=== PATIENT | female | born 1965 | race African-American/Black ===

== ENCOUNTER 2017-09-27 23:52 | Inpatient (IN) | payer OTHER ==
[~2017-09-27] VITALS: Ht 170.2 cm; Wt 125.5 kg
[~2017-09-27 23:52] MED LIST: AMLO-512 PO; LISI10TA PO; VERA40TA5 PO; [UNRECOGNIZED DRUG - REMARK] PO
[2017-09-27] MEDS ORDERED: IPRATROPIUM BROMIDE 0.5 MG/2.5 ML NEB SOLUTION NEB ONE (23:54)
[2017-09-27] MEDS ORDERED: 0.9% SODIUM CHLORIDE 5 ML NEB SOLUTION NEB ONE (23:55)
[2017-09-27] MEDS ORDERED: ALBUTEROL SULFATE 5 MG/ML 20 ML NEB SOLN [BULK] NEB ONE (23:56)
[2017-09-28] MEDS ORDERED: ALBUTEROL SULFATE 5 MG/ML 20 ML NEB SOLN [BULK] NEB ONE
[2017-09-28] MEDS ORDERED: MethylPREDNISolone SOD SUCC 125 MG/2 ML VIAL IVP ONE
[2017-09-28] MEDS ORDERED: CefTRIAXone SODIUM 1 GM in DEXTROSE 5%-WATER 10 ML IV ONE ×2
[2017-09-28] MEDS ORDERED: OXYGEN THERAPY IH SCH
[2017-09-28] MEDS ORDERED: IPRATROPIUM BROMIDE 0.5 MG/2.5 ML NEB SOLUTION NEB ONE
[2017-09-28 00:15] LABS: BASOPHILS % (AUTO) 0.7 % (0.0-2.0); EOSINOPHILS % (AUTO) 1.8 % (1.0-6.0); HEMATOCRIT 32.5 % (36-46); HEMOGLOBIN 10.7 g/dL (12.0-16.0); LYMPHOCYTES % (AUTO) 32.8 % (22.0-44.0); MEAN CORPUSCULAR HEMOGLOBIN 23.6 pg (26.0-34.0); MEAN CORPUSCULAR HGB CONC 32.9 G/dL (31.0-37.0); MEAN CORPUSCULAR VOLUME 72 fL (80-100); MONOCYTES # (AUTO) 0.3 K/uL (0.1-1.0); MONOCYTES % (AUTO) 3.6 % (2.0-9.0); NEUTROPHILS # (AUTO) 5.6 K/uL (1.8-7.7); NEUTROPHILS % (AUTO) 61.1 % (40.0-70.0); PLATELET COUNT (AUTO) 423 K/uL (150-450); RED BLOOD CELL COUNT(AUTO) 4.52 MIL/uL (4.00-5.20); RED CELL DISTRIBUTION WIDTH 17.1 % (11.5-14.5)
[2017-09-28 00:17] LABS: ANION GAP 10 mmol/L (8-16); CALCIUM, TOTAL 9.3 mg/dL (8.8-10.5); CARBON DIOXIDE 26 mmol/L (22-29); CHLORIDE 105 mmol/L (98-107); CREATININE 0.97 mg/dL (0.60-1.30); GLOMERULAR FILTR. RATE CALC > 60 mL/min (>60); GLUCOSE,RANDOM 142 mg/dL (70-110); POTASSIUM 3.6 mmol/L (3.5-5.1); SODIUM SERUM 141 mmol/L (136-145); UREA NITROGEN, BLOOD 10 mg/dL (7-18)
[2017-09-28 00:23] LABS: ALANINE AMINOTRANSFERASE 17 U/L (12-78); ALBUMIN 3.1 g/dL (3.4-5.0); ALKALINE PHOSPHATASE 122 U/L (46-116); ASPARTATE AMINOTRANSFERASE 15 U/L (15-37); BILIRUBIN,TOTAL 0.4 mg/dL (0.1-1.0); LIPASE 289 U/L (73-393); TOTAL PROTEIN, SERUM 7.5 g/dL (6.4-8.2)
[2017-09-28 00:32] LABS: B-TYPE NATRIURETIC PEPTIDE 307 pg/mL (0-100)
[2017-09-28] MEDS ORDERED: 0.9% SODIUM CHLORIDE 10 ML SYRINGE IVP PRN (00:45)
[2017-09-28] MEDS ORDERED: FUROSEMIDE 40 MG/4 ML VIAL IVP ONE (00:45)
[2017-09-28] MEDS ORDERED: MIDAZOLAM HCL 5 MG/ML VIAL ONE (00:45)
[2017-09-28] MEDS ORDERED: PROPOFOL 1000 MG/ISO-OSM 100 ML IV ONE ×2 (00:45→06:50)
[2017-09-28] MEDS ORDERED: ONDANSETRON HCL 4 MG/2 ML VIAL IVP PRN (00:45)
[2017-09-28] MEDS ORDERED: MIDAZOLAM HCL 5 MG/ML VIAL IVP ONE (01:00)
[2017-09-28] MEDS ORDERED: ETOMIDATE 2 MG/ML 10 ML VIAL IVP ONE (01:00)
[2017-09-28] MEDS ORDERED: VECURONIUM BROMIDE 10 MG/VIAL IVP ONE ×2 (01:00→02:00)
[2017-09-28] MEDS: PROPOFOL 1000 MG/ISO-OSM 100 ML IV PRN ×9 (01:20→23:09)
[2017-09-28 01:37] LABS: APPEARANCE,URINE CLEAR (CLEAR); BILIRUBIN,URINE NEGATIVE (NEGATIVE); GLUCOSE, URINE (UA) NEGATIVE (NEGATIVE); KETONES,URINE NEGATIVE (NEGATIVE); LEUKOCYTE ESTERASE ,URINE NEGATIVE (NEGATIVE); NITRATE,URINE NEGATIVE (NEGATIVE); OCCULT BLOOD,URINE NEGATIVE (NEGATIVE); PH,URINE 5.5 (5.0-8.0); PROTEIN,URINE POS 1+ (NEGATIVE); UROBILINOGEN,URINE 0.2 mg/dL (<=1.0)
[2017-09-28 01:52] LABS: BACTERIA,URINE Few /HPF (None Seen); RBC,URINE 0-2 /HPF (0-2); SQUAMOUS EPITHELIAL CELL,UR Few /LPF (None Seen); WBC,URINE 0-2 /HPF (0-5)
[2017-09-28 01:57] LABS: ABG A-A DIFF O2 556.5 mmHg (10-20.0); ABG BASE EXCESS 0.6 mmol/L (-2.0-3.0); ABG HCO3 23.4 mmol/L (22.0-26.0); ABG METHEMOGLOBIN 0.4 % (0.0-1.5); ABG OXYGEN CONTENT 16.3 mL/dL (15.0-23.0); ABG OXYGEN SATURATION 93.3 % (95.0-98.0); ABG OXYHEMOGLOBIN 91.1 % (94.0-100.0); ABG TOTAL HEMOGLOBIN 12.7 G/dL (12.0-18.0); SOURCE, BLOOD GAS ARTERIAL; TEMPERATURE, FAHRENHEIT, BG 98.2 FAHREN (96.0-98.6)
[2017-09-28 01:58] LABS: ABG PCO2 75 mmHg (35-45); ABG PH 7.199 (7.35-7.450); O2 DEVICE,BLOOD GAS VENTILATOR (ROOM AIR); PEEP,BG 5 cm H2O; SITE, BLOOD GAS RT RADIAL; VT, ABG 500 ml
[2017-09-28 02:20] VITALS: BP 105/75
[2017-09-28] MEDS ORDERED: IPRATROPIUM BROMIDE 0.5 MG/2.5 ML NEB SOLUTION NEB SCH (03:00)
[2017-09-28] MEDS ORDERED: ALBUTEROL SULFATE 2.5 MG/0.5 ML NEB SOLUTION NEB SCH (03:00)
[2017-09-28 03:44] LABS: ABG BASE EXCESS -0.1 mmol/L (-2.0-3.0); ABG CARBOXYHEMOGLOBIN 1.2 % (0.0-1.5); ABG HCO3 23.6 mmol/L (22.0-26.0); ABG METHEMOGLOBIN 0.2 % (0.0-1.5); ABG OXYGEN CONTENT 15.9 mL/dL (15.0-23.0); ABG OXYGEN SATURATION 95.7 % (95.0-98.0); ABG OXYHEMOGLOBIN 94.4 % (94.0-100.0); ABG PCO2 59 mmHg (35-45); ABG PH 7.275 (7.35-7.450); ABG TOTAL HEMOGLOBIN 11.9 G/dL (12.0-18.0); PO2, ARTERIAL BG 87.1 mmHg (84.0-92.0); SOURCE, BLOOD GAS ARTERIAL; TEMPERATURE, FAHRENHEIT, BG 97.9 FAHREN (96.0-98.6)
[2017-09-28 03:45] LABS: SITE, BLOOD GAS RT RADIAL
[2017-09-28 03:46] LABS: O2 DEVICE,BLOOD GAS VENTILATOR (ROOM AIR); PEEP,BG 5 cm H2O; VT, ABG 500 ml
[2017-09-28 04:00] VITALS: BP 101/57
[2017-09-28 08:00] VITALS: BP 152/93
[2017-09-28] MEDS: PANTOPRAZOLE SODIUM 40 MG DR TABLET PO SCH ×2 (09:00→09:31)
[2017-09-28] MEDS ORDERED: MAGNESIUM HYDROXIDE SUSPENSION 30 ML UDCUP PO PRN (09:00)
[2017-09-28] MEDS: DOCUSATE SODIUM 100 MG CAPSULE PO SCH ×2 (09:31→21:49)
[2017-09-28 12:00] VITALS: BP 168/97
[2017-09-28] MEDS ORDERED: ROCURONIUM BROMIDE 10 MG/ML 5 ML VIAL IVP ONE (12:00)
[2017-09-28] MEDS ORDERED: SUCCINYLCHOLINE CHLORIDE 20 MG/ML 10 ML VIAL IVP ONE (12:00)
[2017-09-28] MEDS: MethylPREDNISolone SOD SUCC 125 MG/2 ML VIAL IVP SCH ×2 (14:29→18:29)
[2017-09-28 16:00] VITALS: BP 177/94
[2017-09-28] MEDS: CloNIDine HCL 0.1 MG TABLET PO PRN ×2 (16:48→23:10)
[2017-09-28] MEDS: HEPARIN SODIUM,PORCINE 5,000 UNITS/ML VIAL SQ SCH (16:49)
[2017-09-28 20:00] VITALS: BP 173/97
[2017-09-28] MEDS: ACETAMINOPHEN 325 MG TABLET PO PRN (21:50)
[2017-09-29] VITALS: BP 163/104
[2017-09-29] MEDS: PROPOFOL 1000 MG/ISO-OSM 100 ML IV PRN ×9 (01:03→23:44)
[2017-09-29] MEDS: HEPARIN SODIUM,PORCINE 5,000 UNITS/ML VIAL SQ SCH ×4 (01:09→23:44)
[2017-09-29] MEDS: MethylPREDNISolone SOD SUCC 125 MG/2 ML VIAL IVP SCH ×5 (01:28→23:44)
[2017-09-29 04:00] VITALS: BP 162/107
[2017-09-29 04:35] LABS: AMPHET/METH SCREEN,URINE POSITIVE (NEGATIVE); BARBITURATE SCREEN, URINE NEGATIVE (NEGATIVE); BENZODIAZEPINES SCREEN,URINE POSITIVE (NEGATIVE); CANNABINOID SCREEN,URINE NEGATIVE (NEGATIVE); COCAINE SCREEN,URINE NEGATIVE (NEGATIVE); METHADONE SCREEN, URINE NEGATIVE (NEGATIVE); OPIATE SCREEN,URINE NEGATIVE (NEGATIVE)
[2017-09-29 04:37] LABS: PHENCYCLIDINE SCREEN,URINE NEGATIVE (NEGATIVE)
[2017-09-29 05:31] LABS: ANION GAP 6 mmol/L (8-16); CARBON DIOXIDE 31 mmol/L (22-29); CHLORIDE 102 mmol/L (98-107); CREATININE 0.97 mg/dL (0.60-1.30); GLOMERULAR FILTR. RATE CALC > 60 mL/min (>60); GLUCOSE,RANDOM 153 mg/dL (70-110); POTASSIUM 3.7 mmol/L (3.5-5.1); SODIUM SERUM 139 mmol/L (136-145); UREA NITROGEN, BLOOD 16 mg/dL (7-18)
[2017-09-29 06:38] LABS: BASOPHILS % (AUTO) 0.3 % (0.0-2.0); EOSINOPHILS % (AUTO) 0.3 % (1.0-6.0); HEMATOCRIT 32.3 % (36-46); HEMOGLOBIN 10.6 g/dL (12.0-16.0); LYMPHOCYTES % (AUTO) 6.1 % (22.0-44.0); MEAN CORPUSCULAR HEMOGLOBIN 23.4 pg (26.0-34.0); MEAN CORPUSCULAR HGB CONC 32.8 G/dL (31.0-37.0); MEAN CORPUSCULAR VOLUME 71 fL (80-100); MONOCYTES # (AUTO) 0.3 K/uL (0.1-1.0); MONOCYTES % (AUTO) 1.7 % (2.0-9.0); NEUTROPHILS # (AUTO) 15.2 K/uL (1.8-7.7); PLATELET COUNT (AUTO) 439 K/uL (150-450); RED BLOOD CELL COUNT(AUTO) 4.52 MIL/uL (4.00-5.20); RED CELL DISTRIBUTION WIDTH 17.5 % (11.5-14.5)
[2017-09-29 06:40] LABS: NEUTROPHILS % (AUTO) 91.6 % (40.0-70.0)
[2017-09-29 08:00] VITALS: BP 182/113
[2017-09-29 08:33] LABS: ABG A-A DIFF O2 207.6 mmHg (10-20.0); ABG BASE EXCESS 8.1 mmol/L (-2.0-3.0); ABG CARBOXYHEMOGLOBIN 0.6 % (0.0-1.5); ABG HCO3 31.1 mmol/L (22.0-26.0); ABG METHEMOGLOBIN 0.2 % (0.0-1.5); ABG OXYGEN CONTENT 14.6 mL/dL (15.0-23.0); ABG OXYGEN SATURATION 93.2 % (95.0-98.0); ABG OXYHEMOGLOBIN 92.5 % (94.0-100.0); ABG PCO2 42 mmHg (35-45); ABG PH 7.488 (7.35-7.450); ABG TOTAL HEMOGLOBIN 11.2 G/dL (12.0-18.0); O2 DEVICE,BLOOD GAS VENTILATOR (ROOM AIR); PEEP,BG 5 cm H2O; PO2, ARTERIAL BG 64.6 mmHg (84.0-92.0); SITE, BLOOD GAS RT RADIAL; SOURCE, BLOOD GAS ARTERIAL; TEMPERATURE, FAHRENHEIT, BG 99.3 FAHREN (96.0-98.6); VT, ABG 500 ml
[2017-09-29] MEDS: DOCUSATE SODIUM 100 MG CAPSULE PO SCH ×2 (09:00→20:02)
[2017-09-29] MEDS: LISINOPRIL 20 MG TABLET PO SCH (10:28)
[2017-09-29] MEDS: CloNIDine HCL 0.1 MG TABLET PO PRN ×2 (10:28→20:02)
[2017-09-29] MEDS: FUROSEMIDE 20 MG/2 ML VIAL IVP SCH (10:28)
[2017-09-29 12:00] VITALS: BP 174/102
[2017-09-29] MEDS: ACETAMINOPHEN 325 MG TABLET PO PRN ×2 (15:25→20:01)
[2017-09-29 16:00] VITALS: BP 159/94
[2017-09-29 20:00] VITALS: BP 185/121
[2017-09-30] VITALS: BP 192/118
[2017-09-30] MEDS ORDERED: NITROPRUSSIDE SODIUM 50 MG in DEXTROSE 5%-WATER 248 ML IV PRN (00:04)
[2017-09-30] MEDS: ACETAMINOPHEN 325 MG TABLET PO PRN (00:27)
[2017-09-30] MEDS: HydrALAZINE HCL 20 MG/ML VIAL IVP PRN ×4 (00:27→21:35)
[2017-09-30] MEDS: PROPOFOL 1000 MG/ISO-OSM 100 ML IV PRN ×10 (02:19→23:42)
[2017-09-30 04:00] VITALS: BP 187/96
[2017-09-30] MEDS: CloNIDine HCL 0.1 MG TABLET PO PRN ×2 (04:04→12:07)
[2017-09-30 05:32] LABS: CREATININE 1.16 mg/dL (0.60-1.30); POTASSIUM 3.7 mmol/L (3.5-5.1)
[2017-09-30] MEDS: MethylPREDNISolone SOD SUCC 125 MG/2 ML VIAL IVP SCH (05:51)
[2017-09-30 07:56] LABS: ABG A-A DIFF O2 193.4 mmHg (10-20.0); ABG BASE EXCESS 6.6 mmol/L (-2.0-3.0); ABG CARBOXYHEMOGLOBIN 0.5 % (0.0-1.5); ABG HCO3 30.2 mmol/L (22.0-26.0); ABG METHEMOGLOBIN 0.1 % (0.0-1.5); ABG OXYGEN CONTENT 16.3 mL/dL (15.0-23.0); ABG OXYGEN SATURATION 95.8 % (95.0-98.0); ABG OXYHEMOGLOBIN 95.2 % (94.0-100.0); ABG PCO2 39 mmHg (35-45); ABG PH 7.503 (7.35-7.450); ABG TOTAL HEMOGLOBIN 12.1 G/dL (12.0-18.0); O2 DEVICE,BLOOD GAS VENTILATOR (ROOM AIR); PEEP,BG 5 cm H2O; PO2, ARTERIAL BG 82.5 mmHg (84.0-92.0); SITE, BLOOD GAS LFT RADIAL; SOURCE, BLOOD GAS ARTERIAL; TEMPERATURE, FAHRENHEIT, BG 99.9 FAHREN (96.0-98.6); VT, ABG 500 ml
[2017-09-30 08:00] VITALS: BP 155/85
[2017-09-30] MEDS: HEPARIN SODIUM,PORCINE 5,000 UNITS/ML VIAL SQ SCH ×3 (08:50→23:42)
[2017-09-30] MEDS: FUROSEMIDE 20 MG/2 ML VIAL IVP SCH (08:50)
[2017-09-30] MEDS: LISINOPRIL 20 MG TABLET PO SCH (08:50)
[2017-09-30] MEDS: PANTOPRAZOLE SODIUM 40 MG DR TABLET PO SCH (08:50)
[2017-09-30] MEDS: DOCUSATE SODIUM 100 MG CAPSULE PO SCH ×2 (08:50→20:10)
[2017-09-30] MEDS ORDERED: MORPHINE SULFATE 2 MG/ML SYRINGE ONE (10:31)
[2017-09-30] MEDS ORDERED: MORPHINE SULFATE 2 MG/ML SYRINGE IVP ONE (10:45)
[2017-09-30] MEDS ORDERED: *CLINICAL-LEVOFLOXACIN IVPB DOSING CLINICAL ONE (11:00)
[2017-09-30] MEDS ORDERED: METHADONE HCL 10 MG TABLET PO SCH (11:00)
[2017-09-30] MEDS: LEVOFLOXACIN 750 MG/D5% WATER 150 ML IV SCH (11:18)
[2017-09-30] MEDS ORDERED: SODIUM CHLORIDE 0.9% 250 ML IV ONE ×2 (11:21→15:59)
[2017-09-30 12:00] VITALS: BP 169/103
[2017-09-30] MEDS: MethylPREDNISolone SOD SUCC 40 MG/ML VIAL IVP SCH ×3 (12:08→23:41)
[2017-09-30 16:00] VITALS: BP 162/92
[2017-09-30] MEDS ORDERED: LIDOCAINE HCL 4% 50 ML SOLUTION TP ONE (17:24)
[2017-09-30] MEDS ORDERED: LIDOCAINE HCL 2% 30 ML JELLY TP ONE (17:24)
[2017-09-30 20:00] VITALS: BP 155/87
[2017-09-30] MEDS: BUDESONIDE 0.5 MG/2 ML NEB SOLUTION NEB SCH (20:59)
[2017-10-01] VITALS (8 sets, daily range): BP systolic 129–189; BP diastolic 70–108
[2017-10-01] MEDS: HydrALAZINE HCL 20 MG/ML VIAL IVP PRN ×4 (02:02→16:25)
[2017-10-01] MEDS: MethylPREDNISolone SOD SUCC 40 MG/ML VIAL IVP SCH ×3 (05:10→17:46)
[2017-10-01 07:11] LABS: BASOPHILS % (AUTO) 0.4 % (0.0-2.0); EOSINOPHILS % (AUTO) 0 % (1.0-6.0); HEMATOCRIT 33.6 % (36-46); HEMOGLOBIN 11.5 g/dL (12.0-16.0); LYMPHOCYTES # (AUTO) 1.4 K/uL (1.0-4.8); LYMPHOCYTES % (AUTO) 8.6 % (22.0-44.0); MEAN CORPUSCULAR HEMOGLOBIN 24.3 pg (26.0-34.0); MEAN CORPUSCULAR HGB CONC 34.3 G/dL (31.0-37.0); MEAN CORPUSCULAR VOLUME 71 fL (80-100); MONOCYTES # (AUTO) 0.7 K/uL (0.1-1.0); MONOCYTES % (AUTO) 3.9 % (2.0-9.0); NEUTROPHILS # (AUTO) 14.5 K/uL (1.8-7.7); NEUTROPHILS % (AUTO) 87.1 % (40.0-70.0); PLATELET COUNT (AUTO) 364 K/uL (150-450); RED BLOOD CELL COUNT(AUTO) 4.74 MIL/uL (4.00-5.20); RED CELL DISTRIBUTION WIDTH 17.3 % (11.5-14.5)
[2017-10-01 07:21] LABS: CALCIUM, TOTAL 9.1 mg/dL (8.8-10.5); CREATININE 1.3 mg/dL (0.60-1.30)
[2017-10-01] MEDS: CloNIDine HCL 0.1 MG TABLET PO PRN (07:29)
[2017-10-01] MEDS: PROPOFOL 1000 MG/ISO-OSM 100 ML IV PRN ×2 (07:29→09:18)
[2017-10-01] MEDS: HEPARIN SODIUM,PORCINE 5,000 UNITS/ML VIAL SQ SCH ×2 (07:29→16:25)
[2017-10-01] MEDS: AMINO ACIDS/PROTEIN HYDROLYS 30 ML TUBE PO SCH (07:30)
[2017-10-01] MEDS: BUDESONIDE 0.5 MG/2 ML NEB SOLUTION NEB SCH ×2 (07:56→21:14)
[2017-10-01] MEDS: PANTOPRAZOLE SODIUM 40 MG DR TABLET PO SCH (08:37)
[2017-10-01] MEDS: FUROSEMIDE 20 MG/2 ML VIAL IVP SCH (08:37)
[2017-10-01] MEDS: DOCUSATE SODIUM 100 MG CAPSULE PO SCH ×2 (08:37→20:17)
[2017-10-01] MEDS: LISINOPRIL 20 MG TABLET PO SCH (08:37)
[2017-10-01] MEDS: LEVOFLOXACIN 750 MG/D5% WATER 150 ML IV SCH (10:48)
[2017-10-01 12:36] LABS: ABG A-A DIFF O2 129.8 mmHg (10-20.0); ABG BASE EXCESS 3.8 mmol/L (-2.0-3.0); ABG CARBOXYHEMOGLOBIN 0.8 % (0.0-1.5); ABG HCO3 27.7 mmol/L (22.0-26.0); ABG OXYGEN SATURATION 98.1 % (95.0-98.0); ABG OXYHEMOGLOBIN 97.3 % (94.0-100.0); ABG PCO2 39 mmHg (35-45); ABG PH 7.465 (7.35-7.450); ABG TOTAL HEMOGLOBIN 12.3 G/dL (12.0-18.0); PO2, ARTERIAL BG 110.3 mmHg (84.0-92.0); SITE, BLOOD GAS RT RADIAL; SOURCE, BLOOD GAS ARTERIAL; TEMPERATURE, FAHRENHEIT, BG 98.6 FAHREN (96.0-98.6)
[2017-10-01 12:37] LABS: CPAP, BG 0 cm H2O; O2 DEVICE,BLOOD GAS VENTILATOR (ROOM AIR); PEEP,BG 0 cm H2O; PRESSURE SUPPORT, BG 8 cm H2O; SPONTANEOUS VT, BG 438 ml; VENT MODE, BG SPONTANEOUS (ROOM AIR)
[2017-10-01] MEDS: ACETAMINOPHEN 325 MG TABLET PO PRN ×2 (14:16→21:34)
[2017-10-01] MEDS: HYDROmorphone HCL 2 MG TABLET PO PRN (18:58)
[2017-10-02] VITALS (14 sets, daily range): BP systolic 107–190; BP diastolic 54–96
[2017-10-02] MEDS: HEPARIN SODIUM,PORCINE 5,000 UNITS/ML VIAL SQ SCH ×3 (01:01→17:00)
[2017-10-02] MEDS: MethylPREDNISolone SOD SUCC 40 MG/ML VIAL IVP SCH ×4 (01:01→17:01)
[2017-10-02] MEDS: HYDROmorphone HCL 2 MG TABLET PO PRN ×4 (01:02→20:29)
[2017-10-02] MEDS ORDERED: PNEUMOCOCCAL VACCINE POLYVALENT 0.5 ML VIAL [PPSV23] IM ONE (01:45)
[2017-10-02 05:17] LABS: BAND NEUTROPHILS % (MANUAL) 0 % (0-5)
[2017-10-02 05:22] LABS: HEMATOCRIT 34.9 % (36-46); HEMOGLOBIN 11.4 g/dL (12.0-16.0); MEAN CORPUSCULAR HEMOGLOBIN 23.5 pg (26.0-34.0); MEAN CORPUSCULAR HGB CONC 32.6 G/dL (31.0-37.0); MEAN CORPUSCULAR VOLUME 72 fL (80-100); PLATELET COUNT (AUTO) 439 K/uL (150-450); RED BLOOD CELL COUNT(AUTO) 4.83 MIL/uL (4.00-5.20); RED CELL DISTRIBUTION WIDTH 17.8 % (11.5-14.5)
[2017-10-02 05:37] LABS: CALCIUM, TOTAL 8.9 mg/dL (8.8-10.5); CREATININE 1.76 mg/dL (0.60-1.30)
[2017-10-02 07:05] LABS: LYMPHOCYTES % (MANUAL) 12 % (22-44); MONOCYTES % (MANUAL) 1 % (2-9); SEGMENTED NEUTROPHILS % 87 % (40-70)
[2017-10-02] MEDS: AMINO ACIDS/PROTEIN HYDROLYS 30 ML TUBE PO SCH (07:38)
[2017-10-02] MEDS: HydrALAZINE HCL 20 MG/ML VIAL IVP PRN ×2 (07:38→13:29)
[2017-10-02] MEDS: BUDESONIDE 0.5 MG/2 ML NEB SOLUTION NEB SCH ×2 (08:04→19:33)
[2017-10-02] MEDS: DOCUSATE SODIUM 100 MG CAPSULE PO SCH ×2 (08:37→20:28)
[2017-10-02] MEDS: LISINOPRIL 20 MG TABLET PO SCH (08:37)
[2017-10-02] MEDS: VERAPAMIL HCL 80 MG TABLET PO SCH (08:37)
[2017-10-02] MEDS: PANTOPRAZOLE SODIUM 40 MG DR TABLET PO SCH (08:37)
[2017-10-02] MEDS: FUROSEMIDE 20 MG/2 ML VIAL IVP SCH (08:39)
[2017-10-02] MEDS ORDERED: AmLODIPine BESYLATE 10 MG TABLET PO SCH (09:00)
[2017-10-02] MEDS: LEVOFLOXACIN 750 MG/D5% WATER 150 ML IV SCH (11:12)
[2017-10-02] MEDS: ACETAMINOPHEN 325 MG TABLET PO PRN (12:20)
[2017-10-02] MEDS: CARVEDILOL 3.125 MG TABLET PO SCH ×2 (14:19→20:30)
[2017-10-02] MEDS: ALBUTEROL SULFATE 2.5 MG/0.5 ML NEB SOLUTION NEB SCH ×2 (19:32→22:38)
[2017-10-02] MEDS: IPRATROPIUM BROMIDE 0.5 MG/2.5 ML NEB SOLUTION NEB SCH ×2 (19:33→22:38)
[2017-10-02 23:00] LABS: CREATININE,URINE RANDOM 87.4 mg/dL (30.0-125.0); SODIUM,URINE RANDOM 17 mmol/l (20-110)
[2017-10-02 23:01] LABS: APPEARANCE,URINE CLEAR (CLEAR); BILIRUBIN,URINE NEGATIVE (NEGATIVE); GLUCOSE, URINE (UA) NEGATIVE (NEGATIVE); KETONES,URINE NEGATIVE (NEGATIVE); LEUKOCYTE ESTERASE ,URINE TRACE (NEGATIVE); NITRATE,URINE NEGATIVE (NEGATIVE); OCCULT BLOOD,URINE SMALL (NEGATIVE); PROTEIN,URINE NEGATIVE (NEGATIVE); UROBILINOGEN,URINE 0.2 mg/dL (<=1.0)
[2017-10-02 23:14] LABS: RBC,URINE 26-50 /HPF (0-2)
[2017-10-02 23:15] LABS: BACTERIA,URINE Rare /HPF (None Seen); SQUAMOUS EPITHELIAL CELL,UR Rare /LPF (None Seen)
[2017-10-03] VITALS (8 sets, daily range): BP systolic 116–163; BP diastolic 66–87
[2017-10-03] MEDS: HEPARIN SODIUM,PORCINE 5,000 UNITS/ML VIAL SQ SCH ×4 (00:25→23:56)
[2017-10-03] MEDS: ACETAMINOPHEN 325 MG TABLET PO PRN ×2 (00:25→20:26)
[2017-10-03] MEDS: MethylPREDNISolone SOD SUCC 40 MG/ML VIAL IVP SCH ×4 (00:26→20:16)
[2017-10-03] MEDS: ALBUTEROL SULFATE 2.5 MG/0.5 ML NEB SOLUTION NEB SCH ×6 (02:51→22:26)
[2017-10-03] MEDS: IPRATROPIUM BROMIDE 0.5 MG/2.5 ML NEB SOLUTION NEB SCH ×6 (02:51→22:26)
[2017-10-03] MEDS: HYDROmorphone HCL 2 MG TABLET PO PRN ×3 (04:52→21:53)
[2017-10-03] MEDS: BUDESONIDE 0.5 MG/2 ML NEB SOLUTION NEB SCH ×2 (08:07→19:39)
[2017-10-03] MEDS: CARVEDILOL 3.125 MG TABLET PO SCH ×2 (08:22→20:16)
[2017-10-03] MEDS: DOCUSATE SODIUM 100 MG CAPSULE PO SCH ×2 (08:22→20:16)
[2017-10-03] MEDS: VERAPAMIL HCL 80 MG TABLET PO SCH (08:22)
[2017-10-03] MEDS: FUROSEMIDE 20 MG/2 ML VIAL IVP SCH (08:22)
[2017-10-03] MEDS: LISINOPRIL 20 MG TABLET PO SCH (08:22)
[2017-10-03] MEDS: PANTOPRAZOLE SODIUM 40 MG DR TABLET PO SCH (08:22)
[2017-10-03] MEDS: AMINO ACIDS/PROTEIN HYDROLYS 30 ML TUBE PO SCH (08:30)
[2017-10-03] MEDS ORDERED: SODIUM CHLORIDE 0.9% 100 ML ONE (10:59)
[2017-10-03] MEDS: LEVOFLOXACIN 750 MG/D5% WATER 150 ML IV SCH (11:04)
[2017-10-03] MEDS ORDERED: *CLINICAL-LEVOFLOXACIN IVPB DOSING CLINICAL ONE (15:30)
[2017-10-03] MEDS ORDERED: SODIUM CHLORIDE 0.9% 1,000 ML IV ONE (15:30)
[2017-10-03] MEDS ORDERED: MethylPREDNISolone SOD SUCC 40 MG/ML VIAL IVP SCH (17:00)
[2017-10-04 00:47] VITALS: BP 136/68
[2017-10-04] MEDS: ACETAMINOPHEN 325 MG TABLET PO PRN ×2 (02:39→08:32)
[2017-10-04] MEDS: IPRATROPIUM BROMIDE 0.5 MG/2.5 ML NEB SOLUTION NEB SCH ×3 (02:40→11:00)
[2017-10-04] MEDS: ALBUTEROL SULFATE 2.5 MG/0.5 ML NEB SOLUTION NEB SCH ×3 (02:41→11:00)
[2017-10-04] MEDS: HYDROmorphone HCL 2 MG TABLET PO PRN ×2 (03:48→11:56)
[2017-10-04 04:57] VITALS: BP 157/86
[2017-10-04 06:41] LABS: BASOPHILS % (AUTO) 0.4 % (0.0-2.0); EOSINOPHILS % (AUTO) 0.1 % (1.0-6.0); HEMATOCRIT 31.9 % (36-46); HEMOGLOBIN 10.5 g/dL (12.0-16.0); LYMPHOCYTES % (AUTO) 12.6 % (22.0-44.0); MEAN CORPUSCULAR HEMOGLOBIN 23.5 pg (26.0-34.0); MEAN CORPUSCULAR HGB CONC 32.8 G/dL (31.0-37.0); MEAN CORPUSCULAR VOLUME 72 fL (80-100); MONOCYTES # (AUTO) 1.1 K/uL (0.1-1.0); MONOCYTES % (AUTO) 6.5 % (2.0-9.0); NEUTROPHILS # (AUTO) 13.1 K/uL (1.8-7.7); NEUTROPHILS % (AUTO) 80.4 % (40.0-70.0); RED BLOOD CELL COUNT(AUTO) 4.45 MIL/uL (4.00-5.20); RED CELL DISTRIBUTION WIDTH 17.1 % (11.5-14.5)
[2017-10-04] MEDS: BUDESONIDE 0.5 MG/2 ML NEB SOLUTION NEB SCH (07:00)
[2017-10-04 07:10] LABS: CALCIUM, TOTAL 8.8 mg/dL (8.8-10.5); CREATININE 1.34 mg/dL (0.60-1.30); POTASSIUM 4.4 mmol/L (3.5-5.1)
[2017-10-04 07:27] VITALS: BP 166/83
[2017-10-04 07:36] LABS: PLATELET COUNT (AUTO) 320 K/uL (150-450)
[2017-10-04] MEDS: MethylPREDNISolone SOD SUCC 40 MG/ML VIAL IVP SCH (08:09)
[2017-10-04] MEDS: FUROSEMIDE 20 MG/2 ML VIAL IVP SCH (08:09)
[2017-10-04] MEDS: HEPARIN SODIUM,PORCINE 5,000 UNITS/ML VIAL SQ SCH (08:09)
[2017-10-04] MEDS: CARVEDILOL 3.125 MG TABLET PO SCH (08:09)
[2017-10-04] MEDS: PANTOPRAZOLE SODIUM 40 MG DR TABLET PO SCH (08:10)
[2017-10-04] MEDS: DOCUSATE SODIUM 100 MG CAPSULE PO SCH (08:10)
[2017-10-04] MEDS: VERAPAMIL HCL 80 MG TABLET PO SCH (08:10)
[2017-10-04 11:09] LABS: LEGIONELLA PNEUMO AG URINE Negative (Negative); ORGANISM ID Not indicated.; S PNEUMO SOURCE Urine; STREP PNEUMONIAE AG URINE Negative (Negative); STREP.PNEUMO BODY FLUID CULT. Not Indicated
[2017-10-04] MEDS ORDERED: PredniSONE 20 MG TABLET PO SCH (11:15)
[2017-10-04 11:30] VITALS: BP 119/98
== END 2017-10-04 13:45 | disposition home or self-care (01) | DRG 133 ==
LOC: EMS 23:53 → ICU 09-28 01:22 → 5S 10-02 16:00
PROVIDERS: ADMIT Internal Medicine; ATTEND Internal Medicine
PROC: 5A1945Z Respiratory Ventilation, 24-96 Consecutive Hours (ICD-10-PCS; principal; 2017-09-28)
PROC: 0BH17EZ Insertion of Endotracheal Airway into Trachea, Via Natural or Artificial Opening (ICD-10-PCS; 2017-09-28)
PROC: 05HY33Z Insertion of Infusion Device into Upper Vein, Percutaneous Approach (ICD-10-PCS; 2017-09-28)
PROC: B54MZZA Ultrasonography of Right Upper Extremity Veins, Guidance (ICD-10-PCS; 2017-09-28)
PROC: 0B9D8ZX Drainage of Right Middle Lung Lobe, Via Natural or Artificial Opening Endoscopic, Diagnostic (ICD-10-PCS; 2017-09-30)
DX: J96.01 Acute respiratory failure with hypoxia (principal); Z99.11 Dependence on respirator [ventilator] status; N17.9 Acute kidney failure, unspecified; J18.9 Pneumonia, unspecified organism; I13.0 Hypertensive heart and chronic kidney disease with heart failure and stage 1 through stage 4 chronic kidney disease, or unspecified chronic kidney disease; J44.0 Chronic obstructive pulmonary disease with (acute) lower respiratory infection; I50.20 Unspecified systolic (congestive) heart failure; D57.1 Sickle-cell disease without crisis; J96.02 Acute respiratory failure with hypercapnia; E44.0 Moderate protein-calorie malnutrition; J44.1 Chronic obstructive pulmonary disease with (acute) exacerbation; J45.21 Mild intermittent asthma with (acute) exacerbation; E66.01 Morbid (severe) obesity due to excess calories; D50.9 Iron deficiency anemia, unspecified; I25.5 Ischemic cardiomyopathy; N18.9 Chronic kidney disease, unspecified; F19.10 Other psychoactive substance abuse, uncomplicated; Z59.0 Homelessness; Z87.891 Personal history of nicotine dependence; Z91.19 Patient's noncompliance with other medical treatment and regimen; Z88.0 Allergy status to penicillin; Z88.5 Allergy status to narcotic agent; Z88.1 Allergy status to other antibiotic agents; Z79.899 Other long term (current) drug therapy; Z71.51 Drug abuse counseling and surveillance of drug abuser; Z68.41 Body mass index [BMI] 40.0-44.9, adult
CPT/HCPCS: 31500; 31624; 36245; 51702; 71250; 76770; 76937; 80307; 82570; 82805; 83605; 84145; 84300; 84540; 85007; 87015; 87040; 87070; 87081; 87205; 87206; 87220; 87449; 87899; 88108; 88312; 90471; 93005; 93306; 94002; 94003; 94640; 94644; 96374; 96375; 97161; 97530; 99291; J0330; J0360; J0696; J1644; J1940; J1956; J2250; J2270; J2704; J2920; J2930; J3490; J7030; J7050; J7060

== ENCOUNTER 2018-12-18 21:44 | Inpatient (IN) | payer MEDICAID, OTHER ==
[~2018-12-18] VITALS: Ht 170.2 cm; Wt 137.5 kg
[2018-12-18] MEDS ORDERED: METO25TA6 PO (22:02)
[2018-12-18] MEDS ORDERED: LISI10TA7 PO (22:02)
[2018-12-18] MEDS ORDERED: GABA600T10 PO (22:02)
[2018-12-18] MEDS ORDERED: FOLI0.4T2 PO (22:02)
[2018-12-18] MEDS ORDERED: FERR325T22 PO (22:02)
[2018-12-18] MEDS ORDERED: SIMV-46 PO (22:02)
[2018-12-18 22:14] LABS: BASOPHILS % (AUTO) 0.6 % (0.0-2.0); EOSINOPHILS % (AUTO) 0.6 % (1.0-6.0); HEMATOCRIT 36.3 % (36-46); HEMOGLOBIN 11.7 g/dL (12.0-16.0); LYMPHOCYTES # (AUTO) 3.4 K/uL (1.0-4.8); LYMPHOCYTES % (AUTO) 34.1 % (22.0-44.0); MEAN CORPUSCULAR HGB CONC 32.2 G/dL (31.0-37.0); MEAN CORPUSCULAR VOLUME 78 fL (80-100); MONOCYTES # (AUTO) 0.4 K/uL (0.1-1.0); MONOCYTES % (AUTO) 4.1 % (2.0-9.0); NEUTROPHILS # (AUTO) 6.1 K/uL (1.8-7.7); NEUTROPHILS % (AUTO) 60.6 % (40.0-70.0); PLATELET COUNT (AUTO) 391 K/uL (150-450); RED BLOOD CELL COUNT(AUTO) 4.68 MIL/uL (4.00-5.20); RED CELL DISTRIBUTION WIDTH 17.5 % (11.5-14.5)
[2018-12-18 22:17] LABS: GLUCOSE,POINT OF CARE 127 MG/DL (70-110)
[2018-12-18 22:37] LABS: ALBUMIN 3.2 g/dL (3.4-5.0); BILIRUBIN,TOTAL 0.2 mg/dL (0.1-1.0); CREATININE 1.18 mg/dL (0.60-1.30); POTASSIUM 3.6 mmol/L (3.5-5.1); TOTAL PROTEIN, SERUM 7.1 g/dL (6.4-8.2)
[2018-12-19] MEDS ORDERED: DiphenhydrAMINE HCL 50 MG/ML VIAL IVP STA (00:22)
[2018-12-19] MEDS ORDERED: ONDANSETRON HCL 4 MG/2 ML VIAL IVP PRN ×2 (00:45→04:45)
[2018-12-19] MEDS ORDERED: ACETAMINOPHEN 325 MG TABLET PO PRN ×2 (00:45→04:45)
[2018-12-19 02:40] VITALS: BP 151/77
[2018-12-19] MEDS ORDERED: ALBUTEROL SULFATE 2.5 MG/0.5 ML NEB SOLUTION NEB PRN (04:45)
[2018-12-19] MEDS ORDERED: IPRATROPIUM BROMIDE 0.5 MG/2.5 ML NEB SOLUTION NEB PRN (04:45)
[2018-12-19] MEDS ORDERED: ZOLPIDEM TARTRATE 5 MG TABLET PO PRN (04:45)
[2018-12-19] MEDS ORDERED: 0.9% SODIUM CHLORIDE 10 ML SYRINGE IVP PRN (04:45)
[2018-12-19 06:45] VITALS: BP 152/70
[2018-12-19 07:57] VITALS: BP 153/85
[2018-12-19] MEDS: SIMVASTATIN 40 MG TABLET PO SCH (08:17)
[2018-12-19] MEDS: FERROUS SULFATE 325 MG EC TABLET PO SCH (08:17)
[2018-12-19] MEDS: FOLIC ACID 0.4 MG TABLET PO SCH (08:17)
[2018-12-19] MEDS: DOCUSATE SODIUM 100 MG CAPSULE PO SCH ×2 (08:17→21:54)
[2018-12-19] MEDS: ASPIRIN 81 MG EC TABLET PO SCH (08:17)
[2018-12-19] MEDS: GABAPENTIN 300 MG CAPSULE PO SCH ×3 (08:18→21:54)
[2018-12-19] MEDS: HEPARIN SODIUM,PORCINE 5,000 UNITS/ML VIAL SQ SCH ×3 (08:18→23:33)
[2018-12-19] MEDS: LISINOPRIL 10 MG TABLET PO SCH (08:18)
[2018-12-19] MEDS ORDERED: METOPROLOL TARTRATE 25 MG TABLET PO SCH (09:00)
[2018-12-19] MEDS ORDERED: PANTOPRAZOLE SODIUM 40 MG DR TABLET PO SCH (09:00)
[2018-12-19] MEDS: IPRATROPIUM BROMIDE 0.5 MG/2.5 ML NEB SOLUTION NEB SCH ×3 (09:26→20:00)
[2018-12-19] MEDS: ALBUTEROL SULFATE 2.5 MG/0.5 ML NEB SOLUTION NEB SCH ×3 (09:26→20:00)
[2018-12-19] MEDS: DiphenhydrAMINE HCL 25 MG CAPSULE PO PRN ×2 (10:19→15:58)
[2018-12-19 11:15] VITALS: BP 137/57
[2018-12-19 19:47] VITALS: BP 119/71
[2018-12-19] MEDS: FAMOTIDINE 10 MG/ML 2 ML VIAL IVP SCH (21:54)
[2018-12-19] MEDS: METOPROLOL TARTRATE 25 MG TABLET PO SCH (21:56)
[2018-12-20 00:20] VITALS: BP 140/69
[2018-12-20] MEDS: IPRATROPIUM BROMIDE 0.5 MG/2.5 ML NEB SOLUTION NEB SCH ×4 (02:00→20:08)
[2018-12-20] MEDS: ALBUTEROL SULFATE 2.5 MG/0.5 ML NEB SOLUTION NEB SCH ×4 (02:00→20:08)
[2018-12-20 04:13] VITALS: BP 148/84
[2018-12-20] MEDS: DiphenhydrAMINE HCL 25 MG CAPSULE PO PRN ×3 (06:14→21:32)
[2018-12-20 06:46] LABS: BASOPHILS % (AUTO) 0.7 % (0.0-2.0); EOSINOPHILS % (AUTO) 1.5 % (1.0-6.0); HEMATOCRIT 35.7 % (36-46); HEMOGLOBIN 11.5 g/dL (12.0-16.0); LYMPHOCYTES # (AUTO) 2.8 K/uL (1.0-4.8); LYMPHOCYTES % (AUTO) 40.9 % (22.0-44.0); MEAN CORPUSCULAR HEMOGLOBIN 25.3 pg (26.0-34.0); MEAN CORPUSCULAR HGB CONC 32.3 G/dL (31.0-37.0); MEAN CORPUSCULAR VOLUME 79 fL (80-100); MONOCYTES # (AUTO) 0.3 K/uL (0.1-1.0); NEUTROPHILS # (AUTO) 3.6 K/uL (1.8-7.7); NEUTROPHILS % (AUTO) 51.9 % (40.0-70.0); PLATELET COUNT (AUTO) 355 K/uL (150-450); RED BLOOD CELL COUNT(AUTO) 4.56 MIL/uL (4.00-5.20); RED CELL DISTRIBUTION WIDTH 17.5 % (11.5-14.5)
[2018-12-20 07:10] LABS: ANION GAP 7 mmol/L (8-16); CALCIUM, TOTAL 8.8 mg/dL (8.8-10.5); CARBON DIOXIDE 26 mmol/L (22-29); CHLORIDE 107 mmol/L (98-107); CHOL/HDL RATIO 3.7 (3.9-5.7); CHOLESTEROL 170 mg/dL (131-200); CREATININE 1.01 mg/dL (0.60-1.30); GLOMERULAR FILTR. RATE CALC > 60 mL/min (>60); GLUCOSE,RANDOM 100 mg/dL (70-110); HDL CHOLESTEROL 46 mg/dL (40-60); LDL CHOL (CALC.) 97 mg/dL (0-130); POTASSIUM 4.1 mmol/L (3.5-5.1); SODIUM SERUM 140 mmol/L (136-145); TRIGLYCERIDES 137 mg/dL (15-150); UREA NITROGEN, BLOOD 13 mg/dL (7-18)
[2018-12-20 07:52] VITALS: BP 140/62
[2018-12-20] MEDS: HEPARIN SODIUM,PORCINE 5,000 UNITS/ML VIAL SQ SCH ×2 (08:00→16:19)
[2018-12-20] MEDS: METOPROLOL TARTRATE 25 MG TABLET PO SCH ×2 (09:00→21:33)
[2018-12-20] MEDS: DOCUSATE SODIUM 100 MG CAPSULE PO SCH ×2 (09:00→21:33)
[2018-12-20] MEDS: SIMVASTATIN 40 MG TABLET PO SCH ×2 (09:00→13:47)
[2018-12-20] MEDS: FOLIC ACID 0.4 MG TABLET PO SCH ×2 (09:00→13:47)
[2018-12-20] MEDS: GABAPENTIN 300 MG CAPSULE PO SCH ×3 (09:00→21:33)
[2018-12-20] MEDS: FAMOTIDINE 10 MG/ML 2 ML VIAL IVP SCH ×2 (09:00→21:33)
[2018-12-20] MEDS: LISINOPRIL 10 MG TABLET PO SCH ×2 (09:00→13:47)
[2018-12-20] MEDS: ASPIRIN 81 MG EC TABLET PO SCH ×2 (09:00→13:47)
[2018-12-20] MEDS: FERROUS SULFATE 325 MG EC TABLET PO SCH ×2 (09:00→13:47)
[2018-12-20] MEDS: OxyCODONE HCL/ACETAMINOPHEN 5-325 MG TABLET PO PRN ×2 (15:33→21:33)
[2018-12-20 16:03] VITALS: BP 133/66
[2018-12-20 21:19] VITALS: BP 142/69
[2018-12-21] MEDS: HEPARIN SODIUM,PORCINE 5,000 UNITS/ML VIAL SQ SCH ×4 (00:41→23:47)
[2018-12-21 00:44] VITALS: BP 149/84
[2018-12-21] MEDS: IPRATROPIUM BROMIDE 0.5 MG/2.5 ML NEB SOLUTION NEB SCH ×4 (02:00→20:15)
[2018-12-21] MEDS: ALBUTEROL SULFATE 2.5 MG/0.5 ML NEB SOLUTION NEB SCH ×4 (02:00→20:15)
[2018-12-21] MEDS ORDERED: SODIUM CHLORIDE 0.9% 100 ML ONE (04:36)
[2018-12-21] MEDS ORDERED: IOVERSOL 350 MG/ML 150 ML VIAL ONE (04:36)
[2018-12-21 05:12] VITALS: BP 149/76
[2018-12-21] MEDS: DiphenhydrAMINE HCL 25 MG CAPSULE PO PRN ×3 (05:25→23:47)
[2018-12-21] MEDS: OxyCODONE HCL/ACETAMINOPHEN 5-325 MG TABLET PO PRN ×3 (05:59→21:35)
[2018-12-21 08:14] VITALS: BP 124/66
[2018-12-21] MEDS: GABAPENTIN 300 MG CAPSULE PO SCH ×3 (08:42→21:34)
[2018-12-21] MEDS: DOCUSATE SODIUM 100 MG CAPSULE PO SCH ×2 (08:42→21:00)
[2018-12-21] MEDS: FERROUS SULFATE 325 MG EC TABLET PO SCH (08:43)
[2018-12-21] MEDS: FOLIC ACID 0.4 MG TABLET PO SCH (08:43)
[2018-12-21] MEDS: SIMVASTATIN 40 MG TABLET PO SCH (08:43)
[2018-12-21] MEDS: LISINOPRIL 10 MG TABLET PO SCH (08:43)
[2018-12-21] MEDS: METOPROLOL TARTRATE 25 MG TABLET PO SCH ×2 (08:43→21:35)
[2018-12-21] MEDS: FAMOTIDINE 10 MG/ML 2 ML VIAL IVP SCH ×2 (08:43→21:34)
[2018-12-21] MEDS: ASPIRIN 81 MG EC TABLET PO SCH (08:43)
[2018-12-21 10:53] VITALS: BP 132/68
[2018-12-21] MEDS ORDERED: IBUPROFEN 400 MG TABLET PO PRN (14:15)
[2018-12-21 15:12] VITALS: BP 154/92
[2018-12-21 19:46] VITALS: BP 129/69
[2018-12-22 00:12] VITALS: BP 118/58
[2018-12-22] MEDS: ALBUTEROL SULFATE 2.5 MG/0.5 ML NEB SOLUTION NEB SCH ×3 (01:34→14:00)
[2018-12-22] MEDS: IPRATROPIUM BROMIDE 0.5 MG/2.5 ML NEB SOLUTION NEB SCH ×3 (01:34→14:14)
[2018-12-22 05:18] VITALS: BP 126/71
[2018-12-22 07:28] VITALS: BP 133/50
[2018-12-22] MEDS: METOPROLOL TARTRATE 25 MG TABLET PO SCH (08:29)
[2018-12-22] MEDS: DiphenhydrAMINE HCL 25 MG CAPSULE PO PRN ×2 (08:29→13:58)
[2018-12-22] MEDS: SIMVASTATIN 40 MG TABLET PO SCH (08:29)
[2018-12-22] MEDS: LISINOPRIL 10 MG TABLET PO SCH (08:29)
[2018-12-22] MEDS: ASPIRIN 81 MG EC TABLET PO SCH (08:30)
[2018-12-22] MEDS: FOLIC ACID 0.4 MG TABLET PO SCH (08:30)
[2018-12-22] MEDS: GABAPENTIN 300 MG CAPSULE PO SCH ×2 (08:30→16:00)
[2018-12-22] MEDS: FERROUS SULFATE 325 MG EC TABLET PO SCH (08:30)
[2018-12-22] MEDS: FAMOTIDINE 10 MG/ML 2 ML VIAL IVP SCH (08:31)
[2018-12-22] MEDS: HEPARIN SODIUM,PORCINE 5,000 UNITS/ML VIAL SQ SCH ×2 (08:31→16:00)
[2018-12-22] MEDS: DOCUSATE SODIUM 100 MG CAPSULE PO SCH (08:45)
[2018-12-22 11:24] VITALS: BP 142/62
[2018-12-22] MEDS ORDERED: ASPI81 PO (11:54)
[2018-12-22] MEDS: OxyCODONE HCL/ACETAMINOPHEN 5-325 MG TABLET PO PRN (13:59)
[2018-12-22 15:45] VITALS: BP 142/85
== END 2018-12-22 18:35 | disposition home or self-care (01) | DRG 203 ==
LOC: EMS 21:44 → 5S 12-19 01:29
PROVIDERS: ADMIT Internal Medicine; ATTEND Internal Medicine
DX: R07.89 Other chest pain (principal); E66.01 Morbid (severe) obesity due to excess calories; E78.5 Hyperlipidemia, unspecified; F17.210 Nicotine dependence, cigarettes, uncomplicated; I10 Essential (primary) hypertension; J44.9 Chronic obstructive pulmonary disease, unspecified; Z82.49 Family history of ischemic heart disease and other diseases of the circulatory system; Z88.1 Allergy status to other antibiotic agents; Z88.5 Allergy status to narcotic agent; Z68.42 Body mass index [BMI] 45.0-49.9, adult
CPT/HCPCS: 74178; 83036; 83735; 93005; 93306; 94640; 96374; 97116; 97162; 97166; 97530; 97535; J1200; J1644; J3490; J7050

== ENCOUNTER 2019-01-08 21:17 | Inpatient (IN) | payer MEDICAID, OTHER ==
[~2019-01-08] VITALS: Ht 170.2 cm; Wt 133.9 kg
[~2019-01-08 21:17] MED LIST changes: -AMLO-512 PO; +ASPI81 PO; +FERR325T22 PO; +FOLI0.4T2 PO; +GABA600T10 PO; -LISI10TA PO; +LISI10TA7 PO; +METO25TA6 PO; +SIMV-46 PO; -VERA40TA5 PO; -[UNRECOGNIZED DRUG - REMARK] PO
[2019-01-08 22:32] LABS: BASOPHILS % (AUTO) 1.1 % (0.0-2.0); EOSINOPHILS % (AUTO) 1.1 % (1.0-6.0); HEMATOCRIT 33.9 % (36-46); HEMOGLOBIN 11.1 g/dL (12.0-16.0); LYMPHOCYTES # (AUTO) 2.9 K/uL (1.0-4.8); MEAN CORPUSCULAR HEMOGLOBIN 25.5 pg (26.0-34.0); MEAN CORPUSCULAR HGB CONC 32.9 G/dL (31.0-37.0); MEAN CORPUSCULAR VOLUME 78 fL (80-100); MONOCYTES # (AUTO) 0.5 K/uL (0.1-1.0); MONOCYTES % (AUTO) 5.5 % (2.0-9.0); NEUTROPHILS # (AUTO) 5.5 K/uL (1.8-7.7); NEUTROPHILS % (AUTO) 60.3 % (40.0-70.0); PLATELET COUNT (AUTO) 368 K/uL (150-450); RED BLOOD CELL COUNT(AUTO) 4.37 MIL/uL (4.00-5.20); RED CELL DISTRIBUTION WIDTH 16.5 % (11.5-14.5)
[2019-01-08 22:46] LABS: CALCIUM, TOTAL 9.5 mg/dL (8.8-10.5); CREATININE 1.27 mg/dL (0.60-1.30); POTASSIUM 3.6 mmol/L (3.5-5.1)
[2019-01-08 22:52] LABS: ALBUMIN 3.2 g/dL (3.4-5.0); BILIRUBIN,TOTAL 0.2 mg/dL (0.1-1.0); TOTAL PROTEIN, SERUM 7.5 g/dL (6.4-8.2)
[2019-01-09] MEDS ORDERED: ACETAMINOPHEN 500 MG TABLET PO ONE (02:15)
[2019-01-09] MEDS ORDERED: DiphenhydrAMINE HCL 50 MG/ML VIAL IVP STA (05:21)
[2019-01-09] MEDS ORDERED: METOCLOPRAMIDE HCL 5 MG/ML 2 ML VIAL IVP ONE (05:30)
[2019-01-09] MEDS ORDERED: METOPROLOL TARTRATE 50 MG TABLET PO ONE (05:30)
[2019-01-09] MEDS ORDERED: LISINOPRIL 10 MG TABLET PO ONE (05:30)
[2019-01-09] MEDS ORDERED: ONDANSETRON HCL 4 MG/2 ML VIAL IVP PRN (06:45)
[2019-01-09] MEDS ORDERED: ACETAMINOPHEN 325 MG TABLET PO PRN ×2 (06:45→08:30)
[2019-01-09] MEDS ORDERED: 0.9% SODIUM CHLORIDE 10 ML SYRINGE IVP PRN (06:45)
[2019-01-09] MEDS ORDERED: MAGNESIUM HYDROXIDE SUSPENSION 30 ML UDCUP PO PRN (08:30)
[2019-01-09] MEDS: AmLODIPine BESYLATE 5 MG TABLET PO SCH (08:41)
[2019-01-09] MEDS: DOCUSATE SODIUM 100 MG CAPSULE PO SCH ×2 (08:41→20:46)
[2019-01-09] MEDS: FAMOTIDINE 20 MG TABLET PO SCH (08:42)
[2019-01-09] MEDS: ASPIRIN 81 MG CHEWABLE TABLET PO SCH (08:42)
[2019-01-09] MEDS: ATORVASTATIN CALCIUM 20 MG TABLET PO SCH (09:07)
[2019-01-09] MEDS: TraMADol HCL 50 MG TABLET PO PRN (15:11)
[2019-01-09] MEDS: HEPARIN SODIUM,PORCINE 5,000 UNITS/ML VIAL SQ SCH ×2 (15:46→22:21)
[2019-01-09 18:24] VITALS: BP 169/95
[2019-01-09 19:14] LABS: AMPHET/METH SCREEN,URINE NEGATIVE (NEGATIVE); BARBITURATE SCREEN, URINE NEGATIVE (NEGATIVE); BENZODIAZEPINES SCREEN,URINE NEGATIVE (NEGATIVE); CANNABINOID SCREEN,URINE NEGATIVE (NEGATIVE); COCAINE SCREEN,URINE NEGATIVE (NEGATIVE); METHADONE SCREEN, URINE NEGATIVE (NEGATIVE); OPIATE SCREEN,URINE NEGATIVE (NEGATIVE)
[2019-01-09 19:16] LABS: PHENCYCLIDINE SCREEN,URINE NEGATIVE (NEGATIVE)
[2019-01-09] MEDS ORDERED: ALBUTEROL SULFATE 2.5 MG/0.5 ML NEB SOLUTION NEB PRN (21:30)
[2019-01-09] MEDS ORDERED: IPRATROPIUM BROMIDE 0.5 MG/2.5 ML NEB SOLUTION NEB PRN (21:30)
[2019-01-09] MEDS ORDERED: NICOTINE 14 MG/24 HOUR PATCH TD ONE (21:45)
[2019-01-09] MEDS ORDERED: GABAPENTIN 300 MG CAPSULE PO ONE (21:45)
[2019-01-09] MEDS: DiphenhydrAMINE HCL 25 MG CAPSULE PO PRN (22:20)
[2019-01-09 23:27] VITALS: BP 139/75
[2019-01-10] MEDS ORDERED: -PHARMACY VACCINE NOTE- MISC ONE (01:00)
[2019-01-10 04:20] VITALS: BP 153/69
[2019-01-10 07:46] VITALS: BP 152/93
[2019-01-10] MEDS: HEPARIN SODIUM,PORCINE 5,000 UNITS/ML VIAL SQ SCH (08:00)
[2019-01-10] MEDS: ASPIRIN 81 MG CHEWABLE TABLET PO SCH (08:00)
[2019-01-10] MEDS: AmLODIPine BESYLATE 5 MG TABLET PO SCH (08:00)
[2019-01-10] MEDS: FAMOTIDINE 20 MG TABLET PO SCH (08:01)
[2019-01-10] MEDS: ATORVASTATIN CALCIUM 20 MG TABLET PO SCH (08:01)
[2019-01-10] MEDS: DOCUSATE SODIUM 100 MG CAPSULE PO SCH (08:03)
[2019-01-10] MEDS: DiphenhydrAMINE HCL 25 MG CAPSULE PO PRN (08:12)
[2019-01-10] MEDS ORDERED: GABAPENTIN 300 MG CAPSULE PO SCH (09:00)
[2019-01-10] MEDS ORDERED: NICOTINE 14 MG/24 HOUR PATCH TD SCH (09:00)
[2019-01-10] MEDS: TraMADol HCL 50 MG TABLET PO PRN (10:07)
[2019-01-10] MEDS ORDERED: AMLO10TA7 PO ×3 (10:54→14:43)
[2019-01-10 11:18] VITALS: BP 150/81
== END 2019-01-10 13:00 | disposition home or self-care (01) | DRG 203 ==
LOC: EMS 21:18 → 5S 01-09 17:04
PROVIDERS: ADMIT Internal Medicine; ATTEND Internal Medicine
DX: R07.89 Other chest pain (principal); I11.0 Hypertensive heart disease with heart failure; E66.01 Morbid (severe) obesity due to excess calories; R56.9 Unspecified convulsions; I50.9 Heart failure, unspecified; Z68.42 Body mass index [BMI] 45.0-49.9, adult; D35.00 Benign neoplasm of unspecified adrenal gland; F17.200 Nicotine dependence, unspecified, uncomplicated; Z88.6 Allergy status to analgesic agent; Z88.5 Allergy status to narcotic agent; Z88.0 Allergy status to penicillin; Z88.8 Allergy status to other drugs, medicaments and biological substances; G47.33 Obstructive sleep apnea (adult) (pediatric); J45.909 Unspecified asthma, uncomplicated
CPT/HCPCS: 70450; 93005; 99173; J1200; J1644; J2765